=== PATIENT | female | born 1935 | race Caucasian/White ===

== ENCOUNTER → 2020-10-29 10:07 | Outpatient (CLI) | payer MEDICARE, SELFPAY ==
--- NOTE | ~2020-10-29 | XR_ITS ---
EXAMINATION: XR lumbar spine 2-3V DATE: 10/29/2020 10:45 INDICATION: Low back pain TECHNIQUE: Anteroposterior and lateral views of the lumbar spine, and cone-down lateral view of the l umbosacral junction were obtained. COMPARISON: None. FINDINGS: The bones are osteopenic which limits the sensitivity for fracture however none is seen. Th e vertebral body heights and alignment are normal. The intervertebral disc spaces are maintained. The re is moderate facet osteoarthritis of the lower lumbar spine. Calcified atherosclerosis is noted. Th ere is a moderate volume of colonic stool. IMPRESSION: 1. No acute osseous abnormality, sensitivity limited by osteopenia. Reviewed, dictated and finalized at location A.
--- NOTE | ~2020-10-29 | XR_ITS ---
EXAMINATION: XR wrist LT min 3V DATE: 10/29/2020 10:45 INDICATION: Left wrist pain, initial encounter TECHNIQUE: Posteroanterior, ulnar deviation, oblique, and lateral views of the left wrist were obtain ed. COMPARISON: None available FINDINGS: The bones are osteopenic which limits the sensitivity for fracture however none is seen. Th ere is soft tissue swelling of the wrist. 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 There is [id number] osteoarthritis of the triscaphe and first carpometacarpal joints. IMPRESSION: 1. Wrist soft tissue swelling without definite acute osseous abnormality, sensitivity limited by oste openia. Reviewed, dictated and finalized at location A. IMPRESSION: 1. Wrist soft tissue swelling without definite acute osseous abnormality, sensi tivity limited by osteopenia.
== END ==
PROVIDERS: PCP Family Medicine Adolescent Medicine; Visit Provider Family Medicine Adolescent Medicine
DX: M79.89 Other specified soft tissue disorders (principal)
CPT/HCPCS: 72100; 73110

== ENCOUNTER 2022-07-06 10:00 | Emergency (ER) | payer MEDICARE, SELFPAY ==
[2022-07-06] VITALS (11 sets, daily range): BP systolic 173–205; BP diastolic 80–94; PULSE 56–72; RESP 14–19; TEMP 36.7; O2SAT 94–99
--- NOTE | ~2022-07-06 | CT_ITS ---
EXAMINATION: CT brain wo con INDICATION: Altered mental status COMPARISON: None TECHNIQUE: Standard unenhanced head CT. The dose-length product (DLP) was 605.33 mGy-cm. The mA was a djusted according to patient size. Iterative reconstruction technique was employed. FINDINGS: There is no acute intraparenchymal hemorrhage. No evidence of mass lesion. No evidence of a cute infarction. 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 There is moderate periventricu lar and subcortical hypodensity probably related to small vessel ischemic disease. There is moderate prominence of the sulci and ventricles related to cerebral atrophy. Intracranial calcified cerebral a therosclerosis is noted. There are no extra-axial collections. There is no mass effect or midline lisset ft. The orbits and soft tissues are unremarkable. There is mild mucosal thickening of the paranasal s inuses. IMPRESSION: 1. No acute intracranial abnormality. 2. Age related findings. Reviewed, dictated and finalized at location B. [employer]
--- NOTE | 2022-07-06 10:08 | ED.AMS ---
HPI - Altered Mental Status General Chief Complaint: Altered Mental Status Stated Complaint: altered mental History of Present Illness HPI narrative: Patient is an 87-year-old female with a history of Alzheimer's dementia here from home due to concerns of family members over decreased alertness this morning. Per EMS, patient was not responding like she normally did this morning and not wanting to take her medicines. Her baseline is A&ox2. Once EMS brought the patient outside for transport she became more alert and began answering questions. Reportedly, family members stated that her urine is malodorous. Patient denies any complaints, is alert and cooperative.. Family members state that patient was acting normally last evening before going to bed. Related Data Home Medications Medication Instructions Recorded Confirmed melatonin 5 mg tablet 5 mg PO QHS 01/28/22 01/28/22 Allergies Allergy/AdvReac Type Severity Reaction Status Date / Time Penicillins Allergy Mild RASH Verified 06/24/22 13:58 Review of Systems Review of Systems: Gen: Denies fevers or chills Eyes: Denies eye pain or visual change ENT: Denies congestion Respiratory: Denies shortness of breath or cough CV: Denies chest pain or palpitations GI: Denies abdominal pain nausea, emesis or diarrhea : denies burning, urgency, frequency or hematuria Musculoskeletal: Denies back pain or muscle pain Neuro: Denies numbness, tingling, weakness or focal weakness Skin: Denies rash Except as documented, all other systems reviewed and negative [facility] Past Medical History Medical History Alzheimer's dementia Aortic atherosclerosis x-ray 10/2020 Coronary artery disease with stable angina pectoris Generalized anxiety disorder Hypertension Hypothyroid Osteoarthritis of hands, bilateral Overactive bladder Prediabetes Pure hypercholesterolemia, unspecified Unilateral primary osteoarthritis, left knee Urge incontinence of urine Surgical History Surgical History History of appendectomy History of D&C History of hysterectomy Family History Family History Son Hypertension Heart disease Social History Social History (Updated 01/28/22 @ 09:01 by Mimi Golden MA) Smoking status: Never smoker Second hand tobacco smoke exposure: Yes Alcohol intake: never Substance use: never Substance use type: does not use Living arrangements: with family Occupation/Education: retired Gender identity (if verbalized by the patient): Female Sexual Orientation (if Verbalized by the Patient): Straight or Heterosexual Spiritual care concerns: No Agree to blood products: Yes Exam Narrative: APPEARANCE: Alert, nontoxic in appearance, appears confused Head: Normocephalic and atraumatic. EYES: PERRLA/EOMI, conjunctivae clear NOSE: No nasal drainage EARS: External ear normal in appearance THROAT: Oropharynx is clear. Mucous membranes are moist. NECK: Supple. No adenopathy, no masses. RESPIRATORY: Airway patent, respirations nonlabored. Clear to auscultation bilaterally, no rales, rhonchi, wheezing. CARDIOVASCULAR: 3/6 systolic ejection murmur auscultated. Regular rate and rhythm without rubs or gallops. ABDOMINAL: Normoactive bowel sounds. Soft, nontender, nondistended. No rebound tenderness or guarding. MUSCULOSKELETAL: Extremities are warm and well-perfused. Moves all extremities well. No edema. NEURO: Normal speech. No focal neurologic deficits. SKIN: Skin is warm and dry. No rashes. PSYCHIATRIC: Normal affect/mood.. Course Vital Signs Vital signs: Vital Signs Temperature 98.0 F 07/06/22 10:01 Pulse Rate 56 L 07/06/22 10:01 Respiratory Rate 16 07/06/22 10:01 Blood Pressure 173/88 H 07/06/22 10:01 Pulse Oximetry 96 07/06/22 10:01 Temperature 98.
--- NOTE | 2022-07-06 10:14 | ECG_ITS ---
Measurements Intervals [place] Rate: 56 P: 67 CA: 170 QRS: -10 QRSD: 92 T: 146 QT: 479 QTc: 462 Interpretive Statements SINUS BRADYCARDIA LEFT VENTRICULAR HYPERTROPHY AND ST-T CHANGE BORDERLINE ST-T WAVE ABNORMALITY- ANTEROLAT/INF LEADS BASELINE WANDER- I, II, III, AVR, AVL, AVF, V6 BORDERLINE ECG NO PREVIOUS ECG AVAILABLE FOR COMPARISON Electronically Signed On 07-06-2022 12:01:58 [employer] MEAT PACKER by Flavio Watkins D.O.
[2022-07-06 10:38] LABS: Appearance Urine Clear (Clear); Basophils Percent Auto 0.7 % (0.2-1.2); Bilirubin Urine 1+ (Negative); Blood Urine Trace-intact (Negative); Color Urine Yellow (Yellow); Eosinophils Absolute Auto 0.2 K/mm3 (0-0.3); Glucose Urine UA Negative (Negative); Hematocrit 40.6 % (37.0-47.0); Hemoglobin 13.1 g/dL (12.0-15.0); Immature Granulocyte Absolute 0.01 K/mm3 (0.00-0.031); Immature Granulocyte Percent A 0.2 % (0-0.5); Ketones Urine Trace mg/dL (Negative); Leukocyte Esterase Ur Negative LEU/UL (Negative); Lymphocytes Absolute Auto 1.15 K/mm3 (0.9-3.2); Mean Corpuscular HGB Conc 32.3 g/dl (32-36); Mean Corpuscular Hemoglobin 29.3 pg (26-34); Mean Corpuscular Volume 90.8 fl (80-100); Mean Platelet Volume 11.1 fl (7.4-10.4); Monocytes Absolute Auto 0.4 K/mm3 (0.1-0.6); Monocytes Percent Auto 7.5 % (2.6-8.5); Neutrophils Absolute Auto 3.6 K/mm3 (1.3-6.7); Neutrophils Percent Auto 66.6 % (45.5-73.1); Nitrate Urine Negative (Negative); Platelet Count Result 188 k/mm3 (150-375); Protein Urine 1+ mg/dL (Negative); Red Blood Count 4.47 M/mm3 (4.2-5.4); Red Cell Distribution Width 14.2 % (11.5-14.5); Specific Grav Ur 1.025 (1.001-1.035); White Blood Count 5.5 K/mm3 (4.5-10.0); pH Urine 5.5 (5.0-9.0)
[2022-07-06 10:42] LABS: Mucus Urine Few /lpf; Squamous Epithelial Cell Urine Rare /hpf (Few); WBC Urine 0-3 /hpf
[2022-07-06 10:45] LABS: Add Urine Microscopic? YES
[2022-07-06 10:54] LABS: Alanine Aminotransferase 13 U/L (6-35); Alkaline Phosphatase 70 U/L (38-126); Anion Gap 3 mmol/L (8-16); Aspartate Amino Transferase 22 U/L (14-36); Bilirubin,Total 0.6 mg/dL (0.2-1.3); Blood Urea Nitrogen 19 mg/dL (7-17); Calcium 8.5 mg/dL (8.4-10.2); Carbon Dioxide 33 mmol/L (22-30); Chloride 105 mmol/L (98-107); Estimated CRCL calculation 32 ml/min; Estimated Glomerular Filt Rate 52; Glucose 103 mg/dL (65-110); Potassium 3.3 mmol/L (3.4-5.0); Sodium 141 mmol/L (137-145)
[2022-07-06 11:05] LABS: Magnesium 2.5 mg/dL (1.6-2.3)
[2022-07-06] MEDS: SODIUM CHLORIDE 0.9% IV 1,000 ML 999 ML IV CONT (11:08)
[2022-07-06] MEDS: POTASSIUM CHLORIDE 20 MEQ PACKET (FOR LIQUID) PO (11:08)
[2022-07-06 11:13] LABS: Troponin I 0.023 ng/mL (0.000-0.034)
[2022-07-06 14:27] LABS: Troponin I 0.025 ng/mL (0.000-0.034)
[2022-07-06] MEDS: lisinopriL 20 MG TABLET PO (14:43)
--- NOTE | 2022-07-06 15:30 | PCCCNOTE ---
Called by ER CHERYL Garcia to meet with family about home health which has been ordered by PCP. Met with spouse and daughter in law, patient used to have [facility] but now has [employer] [facility]. They keep getting materials for nursing homes, what they want is a home health aide. Per spouse, patient is able to walk independently but needs help getting in and out of the bath and does not like to take a shower. is primary caregiver and has disc disease that he is being followed for. Patient does have alztheimers. Provided resources for private caregivers, home health agencies that are in network with [facility], educated to have PCP Dr. Flores order. Encouraged to call [employer] to get benefits and also see if able to have nurse spring encaser to support for health conditions and connection to resources through health plan. Provided resources for adult day cares and phone number for Department of aging. verbalizes understanding, and does not have any further questions.
== END 2022-07-06 15:47 | disposition home or self-care (01) ==
PROVIDERS: Emergency Provider Physician Assistant; PCP Family Medicine Adolescent Medicine
DX: R40.4 Transient alteration of awareness (principal); G30.9 Alzheimer's disease, unspecified; F02.80 Dementia in other diseases classified elsewhere, unspecified severity, without behavioral disturbance, psychotic disturbance, mood disturbance, and anxiety; I70.0 Atherosclerosis of aorta; I25.118 Atherosclerotic heart disease of native coronary artery with other forms of angina pectoris; I10 Essential (primary) hypertension; E78.00 Pure hypercholesterolemia, unspecified; E03.9 Hypothyroidism, unspecified; M19.042 Primary osteoarthritis, left hand; M19.041 Primary osteoarthritis, right hand; M17.12 Unilateral primary osteoarthritis, left knee; R73.03 Prediabetes; N39.41 Urge incontinence; Z90.710 Acquired absence of both cervix and uterus
CPT/HCPCS: 36415; 70450; 80053; 81001; 83735; 84443; 84484; 85025; 93005; 96360; 96361; 99284; A9270; J7030

== ENCOUNTER 2023-07-31 18:06 | Inpatient (IN) | payer MEDICARE, SELFPAY ==
[2023-07-31] VITALS (22 sets, daily range): BP systolic 114–155; BP diastolic 86–108; PULSE 106–158; RESP 14–28; TEMP 36.3–37; O2SAT 89–100
--- NOTE | ~2023-07-31 | CT_ITS ---
EXAMINATION: CT chest abdomen pelvis w con DATE: 07/31/2023 21:55 INDICATION: Frequent falls, L rib pain, AMS/Nonverbal . TECHNIQUE: Computed tomography (CT) of the chest, abdomen, and pelvis was performed with 100 mL Omnip aque-350 intravenous contrast. Automated exposure control and iterative reconstruction technique were employed. The dose-length product was 851.53 mGy-cm. COMPARISON: CT thorax 10/03/2004 FINDINGS: CHEST: No thoracic aortic injury. Mild arch calcifications. No mediastinal hematoma. Dilated central pulmonary arteries as can be seen with pulmonary arterial hy pertension. Small acute embolus in a right lower lobe segmental artery, extending into subsegmental v essels. RV/LV ratio less than 1. Left ventricular hypertrophy. Cardiomegaly. Aortic valve, coronary a rtery, and mitral calcification. No pericardial effusion. Small bilateral pleural fluid collections No acute lung injury. Mild septal thickening and scattered groundglass opacities. Bilateral dependent atelectasis/scar. No pleural effusion or pneumothorax. ABDOMEN/PELVIS: No solid organ injury. Hepatic vein reflux. Pancreatic and bilateral renal atrophy. No evidence of bowel or mesenteric injury. Diverticulosis without diverticulitis. No free fluid or free air. No retroperitoneal hematoma. Pelvic contents are atraumatic. Absent uterus. MUSCULOSKELETAL: Nondisplaced and minimally displaced fractures of the left posterior fourth through 10th ribs. Nondis placed and minimally displaced left anterolateral/lateral fractures involving ribs 4 through 8. No fracture or traumatic malalignment of the thoracic or lumbar spine. Multilevel concave endplate de formities in the thoracic or lumbar spine as can be seen with osteoporosis. IMPRESSION: Nondisplaced and minimally displaced segmental left fourth through eighth rib fractures (flail chest) . Nondisplaced/minimally displaced fracture left posterior ninth and 10th rib fractures. Small bilateral pleural effusions, greater on the left, may represent hemothoraces in the setting of trauma. No additional traumatic finding detected in the chest abdomen or pelvis. Small segmental/subsegmental right lower lobe acute pulmonary embolus. Small clot burden. Cardiomegaly with left ventricular hypertrophy and signs of right heart failure. Pulmonary opacities may represent pulmonary edema. Reviewed, dictated and finalized at location K. ER IMPRESSION: Nondisplaced and minimally displaced segmental left fourth through eighth rib f ractures (flail chest). Nondisplaced/minimally displaced fracture left posterior ninth and 10th rib fra ctures. Small bilateral pleural effusions, greater on the left, may represent hemothora dusty in the setting of trauma. No additional traumatic finding detected in the chest abdomen or pelvis. Small segmental/subsegmental right lower lobe acute pulmonary embolus. Small cl ot burden. Cardiomegaly with left ventricular hypertrophy and signs of right heart failure . Pulmonary opacities may represent pulmonary edema.
--- NOTE | ~2023-07-31 | CT_ITS ---
EXAMINATION: CT cervical spine wo con DATE: 07/31/2023 21:54 INDICATION: AMS TECHNIQUE: Computed tomography (CT) of the cervical spine was performed without intravenous contrast. Automated exposure control and iterative reconstruction technique were employed. The dose-length pro duct was 300.16 mGy-cm. COMPARISON: None. FINDINGS: Vertebral Body Alignment: Intact. Craniocervical and atlantoaxial alignment: Moderate degenerative change. Alignment intact. Osseous structures/fracture: No evidence of a lytic or blastic process in the visualized spine. No e vidence of acute fracture. Multilevel chronic appearing endplate deformities in the mid and lower cer vical spine Cervical soft tissues: The paraspinal soft tissues planes are maintained. Degenerative changes: Multilevel moderate degenerative disc disease and facet arthropathy. No severe central canal or neural foraminal narrowing. IMPRESSION: No acute fracture or traumatic malalignment in the cervical spine. Reviewed, dictated and finalized at location K. 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
--- NOTE | ~2023-07-31 | CT_ITS ---
EXAMINATION: CT brain wo con DATE: 07/31/2023 21:54 INDICATION: AMS . TECHNIQUE: Computed tomography (CT) of the head was performed without intravenous contrast. The mA wa s adjusted according to patient size. Iterative reconstruction technique was employed. The dose-lengt h product was 605.33 mGy-cm. COMPARISON: 07/06/2022; MR brain 04/26/2018. FINDINGS: No acute intracranial hemorrhage or extra-axial fluid collection. No hydrocephalus, mass, or herniation. No acute ischemic infarct. Unremarkable dural venous sinus attenuation. No acute osseous abnormality. The aerated spaces are clear. Moderate atrophy and chronic white matter change. Atherosclerotic intracranial calcification. Bilater al lens replacements. Focal old bilateral caudate head and left periventricular lacunar infarcts. Cheikh ateral basal ganglia calcification. IMPRESSION: No acute intracranial process. Reviewed, dictated and finalized at location K. 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
--- NOTE | 2023-07-31 18:34 | ECG_ITS ---
Measurements Intervals [place] Rate: 123 P: DC: 0 QRS: -15 QRSD: 97 T: 163 QT: 292 QTc: 418 Interpretive Statements ATRIAL FIBRILLATION WITH RAPID VENTRICULAR RESPONSE VOLTAGE CRITERIA FOR LVH [MEETS CRITERIA IN ONE OF: R(aVL), S(V1), R(V5), R(V5/V6)+S(V1)] ST DEVIATION AND MODERATE T-WAVE ABNORMALITY, CONSIDER LATERAL ISCHEMIA [-0.1+ mV T- WAVE IN I/aVL/V5/V6] ABNORMAL ECG COMPARED TO ECG 07/06/2022 10:20:00 ATRIAL FIBRILLATION NOW PRESENT Electronically Signed On 08-01-2023 18:13:30 [employer]ER [employer]OUNDER by Davy Goncalves M.D.
[2023-07-31 18:47] LABS: Basophils Absolute Auto 0.1 K/mm3 (0.0-0.1); Basophils Percent Auto 0.4 % (0.2-1.2); Eosinophils Absolute Auto 0.4 K/mm3 (0-0.3); Eosinophils Percent Auto 3.2 % (0-4.4); Hematocrit 39.8 % (37.0-47.0); Hemoglobin 12.4 g/dL (12.0-15.0); Immature Granulocyte Absolute 0.08 K/mm3 (0.00-0.031); Immature Granulocyte Percent A 0.7 % (0-0.5); Lymphocytes Absolute Auto 1.29 K/mm3 (0.9-3.2); Lymphocytes Percent Auto 11.2 % (18.3-44.2); Mean Corpuscular HGB Conc 31.2 g/dl (32-36); Mean Corpuscular Hemoglobin 26.8 pg (26-34); Mean Platelet Volume 11.4 fl (7.4-10.4); Monocytes Absolute Auto 0.5 K/mm3 (0.1-0.6); Monocytes Percent Auto 4.3 % (2.6-8.5); Neutrophils Absolute Auto 9.2 K/mm3 (1.3-6.7); Neutrophils Percent Auto 80.2 % (45.5-73.1); Platelet Count Result 222 k/mm3 (150-375); Red Blood Count 4.63 M/mm3 (4.2-5.4); Red Cell Distribution Width 15.5 % (11.5-14.5); White Blood Count 11.5 K/mm3 (4.5-10.0)
[2023-07-31 18:58] LABS: INR 1.2; Prothrombin Time 15.4 Seconds (11.1-14.7)
[2023-07-31 18:59] LABS: Partial Thromboplastin Time 29.5 SECONDS (22.3-36.8)
[2023-07-31 19:02] LABS: Alanine Aminotransferase 130 U/L (6-35); Albumin Level 3.5 g/dL (3.5-5.1); Alkaline Phosphatase 91 U/L (38-126); Anion Gap 4 mmol/L (8-16); Aspartate Amino Transferase 211 U/L (14-36); Bilirubin,Total 1.1 mg/dL (0.2-1.3); Blood Urea Nitrogen 34 mg/dL (7-17); Calcium 8.7 mg/dL (8.4-10.2); Carbon Dioxide 31 mmol/L (22-30); Chloride 103 mmol/L (98-107); Estimated CRCL calculation 23 ml/min; Estimated Glomerular Filt Rate 35; Glucose 144 mg/dL (65-110); Potassium 2.8 mmol/L (3.4-5.0); Sodium 138 mmol/L (137-145)
--- NOTE | 2023-07-31 20:04 | ED.GENADULT ---
HPI - General Adult General Chief complaint: Syncope Stated complaint: fall Time Seen by Provider: 07/31/23 19:48 History of Present Illness HPI narrative: this is an 88-year-old female presenting ED with chief complaint of weakness and altered mental status. Patient has been steadily declining over the last week. Family notes she had been having diarrhea that eventually culminated in the fall. after the fall she was complaining of left-sided rib pain. She did see her primary care physician 3 days after that who prescribed her pain medication. Since then the patient has not been doing well. Family reports multiple syncopal episodes that are associated with slight shaking. no history of seizures. She is no longer verbal when usually she can answer yes or no questions due to dementia. At this time the patient can provide no useful information during the interview. Related Data Allergies Allergy/AdvReac Type Severity Reaction Status Date / Time Penicillins Allergy Mild RASH Verified 07/31/23 18:07 REPLACED BY [facility] Past Medical History Medical History Alzheimer's dementia Aortic atherosclerosis x-ray 10/2020 Coronary artery disease with stable angina pectoris Generalized anxiety disorder Hypertension Hypothyroid Osteoarthritis of hands, bilateral Overactive bladder Prediabetes Pure hypercholesterolemia, unspecified Unilateral primary osteoarthritis, left knee Urge incontinence of urine Surgical History Surgical History History of appendectomy History of D&C History of hysterectomy Family History Family History Son Hypertension Heart disease Social History Social History (Updated 02/25/23 @ 11:01 by Bk Murillo MA) Smoking status: Never smoker Second hand tobacco smoke exposure: Yes Alcohol intake: never Substance use: never Substance use type: does not use Lack of Transportation: YES Lack of Food: Never True Current Housing: I Have Housing Concerned About Future Housing: No Difficulty Paying Gas/Electric Bills: No Difficulty Paying for Meds: No Currently Unemployed: No Education: High School Diploma/GED Difficulty w/ Childcare or Family Care: No Living arrangements: with family Occupation/Education: retired Gender identity (if verbalized by the patient): Female Sexual Orientation (if Verbalized by the Patient): Straight or Heterosexual Spiritual care concerns: No Agree to blood products: Yes Exam Narrative: APPEARANCE: Patient will track you with her eyes but does not follow commands or answer questions. Head: atraumatic. EYES: EOMI, NOSE: Atraumatic NECK: Trachea midline RESPIRATORY: No increased rate of breathing , CTAB CARDIOVASCULAR: RRR, no peripheral edema ABDOMINAL: Non-distended soft nontender MUSCULOSKELETAl: tenderness palpation over the left rib cage, rapid had toe trauma exam revealed no other injuries. NEURO: Alert. Moving 4/4 extremities SKIN:: Warm, dry. Normal color PSYCHIATRIC: Nonverbal Course Vital Signs Vital signs: Vital Signs Temperature 98.6 F 07/31/23 18:28 Pulse Rate 106 H 07/31/23 18:28 Respiratory Rate 20 07/31/23 18:28 Blood Pressure 134/89 07/31/23 18:28 Pulse Oximetry 95 07/31/23 18:28 Oxygen Delivery Room Air 07/31/23 18:28 Temperature 98.6 F 07/31/23 18:28 Pulse Rate 142 H 07/31/23 22:16 Respiratory Rate 24 H 07/31/23 22:16 Blood Pressure 118/105 H 07/31/23 22:16 Pulse Oximetry 95 07/31/23 22:01 Oxygen Delivery Room Air 07/31/23 18:28 Medical Decision Making MDM Narrative Medical decision making narrative: -Course:An 88-year-old female with history of dementia presenting with sharp decline over the last week following a fall. Workup here was significant for a large flail chest segme
[2023-07-31] MEDS: POTASSIUM CHLORIDE INJ 40 MEQ in SODIUM CHLORIDE 0.9% IV 500 ML 130 MEQ IVPB (20:19)
[2023-07-31] MEDS: POTASSIUM CHLORIDE 20 MEQ PACKET (FOR LIQUID) 40 MEQ PO (20:20)
[2023-07-31] MEDS: SODIUM CHLORIDE 0.9% IV 2,000 ML 999 ML IV CONT (20:20)
[2023-07-31 20:31] LABS: Creatine Kinase 71 U/L (30-135); Lipase 32 U/L (23-300); Magnesium 2.2 mg/dL (1.6-2.3); Phosphorus 3.8 mg/dL (2.5-4.5)
[2023-07-31 20:34] LABS: INR 1.1; Prothrombin Time 14.8 Seconds (11.1-14.7)
[2023-07-31 20:35] LABS: Partial Thromboplastin Time 28.1 SECONDS (22.3-36.8)
[2023-07-31 20:46] LABS: Troponin I 0.458 ng/mL (0.000-0.034)
--- NOTE | 2023-07-31 21:35 | PC.NURSE ---
Patient in CT at this time, on tele monitor.
[2023-07-31 21:45] LABS: Appearance Urine Cloudy (Clear); Bacteria Urine 4+ /hpf; Bilirubin Urine 1+ (Negative); Blood Urine Negative (Negative); Color Urine Dark Yellow (Yellow); Glucose Urine UA Negative (Negative); Ketones Urine Trace mg/dL (Negative); Leukocyte Esterase Ur 1+ LEU/UL (Negative); Need Manual Microscopic Reviewed; Nitrate Urine Negative (Negative); Non Pathogenic Casts >20; Protein Urine Trace mg/dL (Negative); RBC Urine 0-2 /hpf (0-2); Specific Grav Ur 1.023 (1.001-1.035); Squamous Epithelial Cell Urine Occasional /hpf (Few); WBC Urine 21-50 /hpf; pH Urine 5.5 (5.0-9.0)
[2023-07-31 21:45] LABS: Free T4 Free Thyroxine Reflex 1.23 ng/dL (0.78-2.19)
[2023-07-31 21:46] LABS: Add Urine Microscopic? YES
[2023-07-31 22:00] LABS: Influenza A QL RT-PCR Negative (Negative); Influenza B QL RT-PCR Negative (Negative); RSV RNA, RT-PCR Negative (Negative); SARS-CoV-2 RNA PCR Negative (Negative)
--- NOTE | 2023-07-31 22:04 | PC.NURSE ---
ERP aware of patients VS, no new orders at this time. Patient still has IV fluids infusing and potassium going. VS 135bpm, 18RR, 97% on RA, 140/103 bp.
[2023-07-31] MEDS: dilTIAZem HCl INJ 25 MG/5 ML VIAL 10 MG IV PUSH (22:22)
[2023-07-31 22:24] LABS: Total Triiodothyronine (T3) 0.47 NG/ML (0.97-1.69)
[2023-07-31] MEDS: ENOXAPARIN 80 MG/0.8 ML SYRINGE 73 MG SUB-Q (22:48)
[2023-07-31] MEDS: LORazepam INJ (*CRX) 2 MG/ML VIAL 1 MG IV PUSH (23:03)
[2023-07-31] MEDS: HYDROmorphone HCL INJ (*CRX) 1 MG/ML SYR 0.5 MG IV PUSH (23:10)
--- NOTE | 2023-07-31 23:17 | PM.IMHP ---
H&P: HPI History of Present Illness Date/Time: 07/31/23 23:17 Chief Complaint: Syncope. This is an 88-year-old female patient with a past medical history of Alzheimer's dementia aortic atherosclerosis coronary artery disease denies anxiety disorder hypertension hypothyroidism hyperlipidemia who came to the emergency room complaining of weakness and altered mental status. Patient has been steadily declining over the last week. Family noted multiple falls. After the fall patient with complaining of left-sided rib pain. Patient saw her primary care physician 3 days ago will prescribe her pain medications. Patient has not been doing well at home. Family reported multiple syncopal episodes that are associated with slight shaking. Patient also had diarrhea. Patient is awake nonverbal not a very good historian. History was taken from the family. Vital signs in the emergency room were stable. CBC showed WBC count of 11.5 hemoglobin 12.4 hematocrit 39.8 platelet count 222. Sodium was 138 potassium 2.8 chloride 103 carbon dioxide 31 BUN 34 creatinine 1.40. Glucose 144. Lactic acid 2.0. AST 211 ALT 130. Troponin 0.458. TSH 4.6 x 0. Urinalysis showed 4+ bacteria 21-[address] scan of the chest abdomen and pelvis showed nondisplaced and minimally displaced segmental left 4th through 8th rib fractures flail chest. Nondisplaced/minimally displaced fractures left posterior 9th and 10th rib fractures. Small bilateral pleural effusions greater on the left may represent hemothorax is in the setting of trauma. Small segmental/subsegmental right lower lobe acute pulmonary embolism. Small clot burden. Cardiomegaly with left ventricular hypertrophy and sign of right heart failure. Pulmonary opacities may represent pulmonary edema. CT cervical spine showed no acute fracture or traumatic malalignment in the cervical spine. CT head showed no acute intracranial process. EKG showed atrial fibrillation with rapid ventricular rate. COVID influenza and RSV were negative. Patient was given IV ceftriaxone IV potassium and IV pain control in the emergency room. Family decided to go with comfort care. Review of Systems Review of Systems: Twelve point review of system is done and is only positive what is dictated in the history of present illness. [facility] Past Medical History Medical History Alzheimer's dementia Aortic atherosclerosis x-ray 10/2020 Coronary artery disease with stable angina pectoris Generalized anxiety disorder Hypertension Hypothyroid Osteoarthritis of hands, bilateral Overactive bladder Prediabetes Pure hypercholesterolemia, unspecified Unilateral primary osteoarthritis, left knee Urge incontinence of urine Surgical History Surgical History History of appendectomy History of D&C History of hysterectomy Family History Family History Son Hypertension Heart disease Social History Social History (Updated 02/25/23 @ 11:01 by Bk Murillo MA) Smoking status: Never smoker Second hand tobacco smoke exposure: Yes Alcohol intake: never Substance use: never Substance use type: does not use Lack of Transportation: YES Lack of Food: Never True Current Housing: I Have Housing Concerned About Future Housing: No Difficulty Paying Gas/Electric Bills: No Difficulty Paying for Meds: No Currently Unemployed: No Education: High School Diploma/GED Difficulty w/ Childcare or Family Care: No Living arrangements: with family Occupation/Education: retired Gender identity (if verbalized by the patient): Female Sexual Orientation (if Verbalized by the Patient): Straight or Heterosexual Spiritual care concerns: No Agree to blood products: Yes Meds Home Medications and Allergies Home Medications Medication Inst
--- NOTE | 2023-07-31 23:45 | ADMGEN ---
This patient, Marietta Steve, was admitted to Medical Room 255-. Patient/family oriented to hospital policies and general routines including ID bracelet, bed and alarms, visiting hours, pain management, procedures, bathroom and other care routines, personal items, smoking policy, room service/diet, and visiting hours. Information on how to activate the Rapid Response Team has been discussed. Patient/Family are encouraged to report perceived risks to care and to ask questions if they do not understand what they are told or what they should do.
--- NOTE | 2023-07-31 23:53 | PC.NURSE ---
Called and spoke with Merly Dorado and her about admission. They stated they would call if they had any issues.
[2023-08-01 00:02] VITALS: BMI 25.4
[2023-08-01 00:05] VITALS: BP 121/90; PULSE 55; RESP 16; TEMP 36.3; O2SAT 100
[2023-08-01 00:30] VITALS: O2SAT 100
[2023-08-01 05:25] VITALS: BP 111/92; PULSE 107; RESP 20; TEMP 35.8; O2SAT 100
[2023-08-01] MEDS: FAMOTIDINE 20 MG/2 ML VIAL IV PUSH ×2 (08:26→21:09)
[2023-08-01] MEDS: HYDROmorphone HCL INJ (*CRX) 1 MG/ML SYR IV PUSH ×4 (09:59→21:08)
--- NOTE | 2023-08-01 13:25 | PM.IMPN ---
Progress Note: A&P Assessment and Plan (1) Flail chest: Code(s): S22.5XXA - Flail chest, initial encounter for closed fracture Status: Acute (2) Pulmonary embolism: Code(s): I26.99 - Other pulmonary embolism without acute cor pulmonale Status: Acute (3) Acute UTI: Code(s): N39.0 - Urinary tract infection, site not specified Status: Acute (4) New onset a-fib: Code(s): I48.91 - Unspecified atrial fibrillation Status: Acute Plan Comfort care Morphine Q 2 Ativan for anxiety Atropine for secretions Nuñez catheter for comfort has decubitus ulcer Q 2 turns Antipyretics for fever D5 and water Supplemental oxygen as needed UTI Rocephin PE Lovenox 1 mg/per kg Supplemental oxygen as needed Pain control Flail chest Multiple rib fractures Pain control Supplemental oxygen as needed Splint with pillow to cough Code status: Comfort measures DVT prophylaxis: Lovenox Stress ulcer prophylaxis: Pepcid PT/OT notes: Bedridden Disposition: Patient continues admission to the medical unit care coordination working with family to set up either inpatient or home hospice. Continue with comfort measures. Time Spent With Patient Time with patient: 25 - 35 minutes Subjective Date/time seen: 08/01/23 13:25 Interval history: Abdomen H&P: (Medical Record) Chief Complaint: Syncope.? This is an 88-year-old female patient with a past medical history of Alzheimer's dementia aortic atherosclerosis coronary artery disease denies anxiety disorder hypertension hypothyroidism hyperlipidemia who came to the emergency room complaining of weakness and altered mental status.? Patient has been steadily declining over the last week.? Family noted multiple falls.? After the fall patient with complaining of left-sided rib pain.? Patient saw her primary care physician 3 days ago will prescribe her pain medications.? Patient has not been doing well at home.? Family reported multiple syncopal episodes that are associated with slight shaking.? Patient also had diarrhea.? Patient is awake nonverbal not a very good historian.? History was taken from the family.? Vital signs in the emergency room were stable.? CBC showed WBC count of 11.5 hemoglobin 12.4 hematocrit 39.8 platelet count 222.? Sodium was 138 potassium 2.8 chloride 103 carbon dioxide 31 BUN 34 creatinine 1.40.? Glucose 144.? Lactic acid 2.0.? AST 211 ALT 130.? Troponin 0.458.? TSH 4.6 x 0.? Urinalysis showed 4+ bacteria 21-[address] scan of the chest abdomen and pelvis showed nondisplaced and minimally displaced segmental left 4th through 8th rib fractures flail chest.? Nondisplaced/minimally displaced fractures left posterior 9th and 10th rib fractures.? Small bilateral pleural effusions greater on the left may represent hemothorax is in the setting of trauma.? Small segmental/subsegmental right lower lobe acute pulmonary embolism.? Small clot burden.? Cardiomegaly with left ventricular hypertrophy and sign of right heart failure.? Pulmonary opacities may represent pulmonary edema.? CT cervical spine showed no acute fracture or traumatic malalignment in the cervical spine.? CT head showed no acute intracranial process.? EKG showed atrial fibrillation with rapid ventricular rate.? COVID influenza and RSV were negative.? Patient was given IV ceftriaxone IV potassium and IV pain control in the emergency room.? Family decided to go with comfort care. 08/01: Patient's response to stimulant alert to self family at bedside discussed hospice care. Care coordination working with POA to set up either inpatient or outpatient hospice care. The patient on cue to morphine, atropine drops, Ativan, and placed a Nuñez for comfort bed ridden with decubitus ulcer noted. Goal at this time is to continue with comfort measures until hospice can be placed. Review of Systems Review of Systems: ROS unobtainable: Yes unobtainable due to medi
[2023-08-01] MEDS: DEXTROSE 5% 1,000 ML 1,000 ML 100 ML IV CONT ×2 (13:41→23:45)
[2023-08-01 14:22] VITALS: BP 97/72; PULSE 65; RESP 16; TEMP 36.2; O2SAT 97
[2023-08-01 20:32] VITALS: BP 108/83; PULSE 54; RESP 10; TEMP 36.2; O2SAT 99
[2023-08-01 21:00] VITALS: O2SAT 99
[2023-08-01] MEDS: ENOXAPARIN 80 MG/0.8 ML SYRINGE 73 MG SUB-Q (21:09)
--- NOTE | 2023-08-02 06:50 | PC.NURSE ---
At approx. 0215 I went in to check on pt. Pt's respirations were not audible upon entering room. Took a listen with my stethoscope and respirations not audible. Pulse absent. Notified propellant charge loader, Gabriela Tang of findings. Patient pronounced @0223.
--- NOTE | 2023-08-02 06:56 | PM.DDS ---
Discharge Summary Date and Time Date of : 08/02/23 Time of : 02:23 Provider Pronounced By: Gabriela Yeager Probable Cause of Probable Cause of : Respiratory Failure/Flail chest/Pulmonary Embolism Summary Hospital Course: Chief Complaint: Syncope.? This is an 88-year-old female patient with a past medical history of Alzheimer's dementia aortic atherosclerosis coronary artery disease denies anxiety disorder hypertension hypothyroidism hyperlipidemia who came to the emergency room complaining of weakness and altered mental status.? Patient has been steadily declining over the last week.? Family noted multiple falls.? After the fall patient with complaining of left-sided rib pain.? Patient saw her primary care physician 3 days ago will prescribe her pain medications.? Patient has not been doing well at home.? Family reported multiple syncopal episodes that are associated with slight shaking.? Patient also had diarrhea.? Patient is awake nonverbal not a very good historian.? History was taken from the family.? Vital signs in the emergency room were stable.? CBC showed WBC count of 11.5 hemoglobin 12.4 hematocrit 39.8 platelet count 222.? Sodium was 138 potassium 2.8 chloride 103 carbon dioxide 31 BUN 34 creatinine 1.40.? Glucose 144.? Lactic acid 2.0.? AST 211 ALT 130.? Troponin 0.458.? TSH 4.6 x 0.? Urinalysis showed 4+ bacteria 21-[address] scan of the chest abdomen and pelvis showed nondisplaced and minimally displaced segmental left 4th through 8th rib fractures flail chest.? Nondisplaced/minimally displaced fractures left posterior 9th and 10th rib fractures.? Small bilateral pleural effusions greater on the left may represent hemothorax is in the setting of trauma.? Small segmental/subsegmental right lower lobe acute pulmonary embolism.? Small clot burden.? Cardiomegaly with left ventricular hypertrophy and sign of right heart failure.? Pulmonary opacities may represent pulmonary edema.? CT cervical spine showed no acute fracture or traumatic malalignment in the cervical spine.? CT head showed no acute intracranial process.? EKG showed atrial fibrillation with rapid ventricular rate.? COVID influenza and RSV were negative.? Patient was given IV ceftriaxone IV potassium and IV pain control in the emergency room.? Family decided to go with comfort care. 08/01: Patient's response to stimulant alert to self family at bedside discussed hospice care.? Care coordination working with POA to set up either inpatient or outpatient hospice care.? The patient on cue to morphine, atropine drops, Ativan, and placed a Nuñez for comfort bed ridden with decubitus ulcer noted.? Goal at this time is to continue with comfort measures until hospice can be placed. 08/02: Patient passed at 0223, Dr. Armstrong was notified of patient passing patient was on comfort measures with plans for hospice, per nursing notes family and roller billet mill were notified and patient was released to the home. Likely cause was respiratory failure secondary to flail chest and pulmonary embolism. Additional Data Confirmation of as documented by pronouncing clinician: Pupillary Reflex, Palpable Pulses, Response to Stimuli, Heart Tones and Breath Sounds Name of Provider Notified: Dr Armstrong Time Provider Notified: 02:30 Was code activated?: No Provider Requests Autopsy: No Family Requests Autopsy: No Ophthalmologist Retina Specialist Notified: Yes Date [facility] Notified of : 08/02/23 Time [facility] Notified of : 03:36 Advance directives: Yes Hospice patient?: No
== END 2023-08-02 02:23 | disposition expired | DRG 183 ==
LOC: ANHED 22:52 → ANH2MED 23:28
PROVIDERS: Emergency Medicine; Admitting Provider Internal Medicine Infectious Disease; Emergency Provider Emergency Medicine; PCP Family Medicine Adolescent Medicine; Visit Provider Nurse Practitioner Family
DX: S22.5XXA Flail chest, initial encounter for closed fracture (principal); I26.99 Other pulmonary embolism without acute cor pulmonale; J96.90 Respiratory failure, unspecified, unspecified whether with hypoxia or hypercapnia; N39.0 Urinary tract infection, site not specified; I25.10 Atherosclerotic heart disease of native coronary artery without angina pectoris; I70.0 Atherosclerosis of aorta; I10 Essential (primary) hypertension; I48.91 Unspecified atrial fibrillation; E03.9 Hypothyroidism, unspecified; E78.00 Pure hypercholesterolemia, unspecified; E87.6 Hypokalemia; N32.81 Overactive bladder; M17.12 Unilateral primary osteoarthritis, left knee; M19.041 Primary osteoarthritis, right hand; M19.042 Primary osteoarthritis, left hand; R73.03 Prediabetes; G30.9 Alzheimer's disease, unspecified; F02.80 Dementia in other diseases classified elsewhere, unspecified severity, without behavioral disturbance, psychotic disturbance, mood disturbance, and anxiety; F41.1 Generalized anxiety disorder; W19.XXXA Unspecified fall, initial encounter; Z20.822 Contact with and (suspected) exposure to COVID-19
CPT/HCPCS: 36415; 70450; 71260; 72125; 74177; 80053; 81001; 82550; 83605; 83690; 83735; 84100; 84439; 84443; 84480; 84484; 85025; 85610; 85730; 87040; 87086; 87186; 87637; 93005; 96374; 96375; 99285; A9270; J0696; J1170; J1650; J2060; J3480; J7030; J7040; J7070; Q9967